=== PATIENT | female | born 1950 | race Caucasian/White ===

== ENCOUNTER → 2018-01-14 | Outpatient (CLI) | payer MEDICARE ==
[~2018-01-14] MED LIST: 'PARAFON FORTE500 M1 PO; ACYCLOVIR400 MG PO; AGGRENOX 25 MG-1 CER PO; AMBIEN12.5 MG PO; HYDROCODONE BIT1 T11 PO; KOMBIGLYZE XR 11 TER PO; LISINOPRIL20 MG PO; NAPROSYN500 MG PO; SIMVASTATIN40 MG PO; TENORETIC PO; [UNRECOGNIZED DRUG - OTHER]
== END | disposition home or self-care (01) ==
LOC: MAMMO 12-30 10:40
DX: Z12.31 Encounter for screening mammogram for malignant neoplasm of breast (principal)

== ENCOUNTER → 2018-01-28 | Outpatient (CLI) | payer MEDICARE | END | disposition home or self-care (01) | LOC: MAMMO 01-20 13:00 | DX: R92.8 Other abnormal and inconclusive findings on diagnostic imaging of breast (principal) ==

== ENCOUNTER → 2018-03-02 | Day surgery (SDC) | payer MEDICARE | END | disposition home or self-care (01) | LOC: SDC 04:08 | DX: C79.81 Secondary malignant neoplasm of breast (principal); N63.31 Unspecified lump in axillary tail of the right breast; I10 Essential (primary) hypertension; E11.9 Type 2 diabetes mellitus without complications; E78.2 Mixed hyperlipidemia; F33.41 Major depressive disorder, recurrent, in partial remission; Z86.73 Personal history of transient ischemic attack (TIA), and cerebral infarction without residual deficits; K21.9 Gastro-esophageal reflux disease without esophagitis; M19.041 Primary osteoarthritis, right hand; M19.042 Primary osteoarthritis, left hand; J45.909 Unspecified asthma, uncomplicated; Z79.899 Other long term (current) drug therapy; Z98.51 Tubal ligation status; Z90.710 Acquired absence of both cervix and uterus; R59.9 Enlarged lymph nodes, unspecified ==

== ENCOUNTER → 2018-03-22 | Outpatient (CLI) | payer MEDICARE ==
[2018-03-22 17:07] LABS: ALBUMIN 4.1 gm/dl (3.1-4.5); ALKALINE PHOSPHATASE 71 U/L (45-117); BUN 16 mg/dl (7-24); CHLORIDE 100 mmol/L (98-107); CREATININE 1.01 mg/dL (0.55-1.02); POTASSIUM 4.6 mmol/L (3.5-5.1); SGOT/AST 32 IU/L (3-35); SGPT/ALT 41 U/L (12-78); SODIUM 136 mmol/L (136-145); TOTAL PROTEIN 8.1 gm/dL (6.4-8.2)
== END | disposition home or self-care (01) ==
LOC: LAB 16:17
PROVIDERS: Family Medicine
DX: E11.9 Type 2 diabetes mellitus without complications (principal)

== ENCOUNTER 2018-05-02 18:39 | Emergency (ER) | payer MEDICARE ==
[~2018-05-02] VITALS: Wt 70.3 kg
[2018-05-02 19:09] LABS: BASO % 0.7 % (0.0-1.0); EOS # 0.3 10*3/uL (0.0-0.4); EOS % 5.6 % (1.0-4.0); HEMATOCRIT 39.9 % (37.0-47.0); HEMOGLOBIN 13.4 g/dl (12.0-16.0); MEAN CELL VOLUME 86.9 fl (81.0-99.0); MEAN CORPUSCULAR HGB 29.2 pg (27.0-31.0); MEAN CORPUSCULAR HGB CONC 33.6 g/dl (33.0-37.0); MEAN PLATELET VOLUME 10.9 fl (9.6-12.3); MONO # 0.5 10*3/uL (0.1-1.0); MONO % 7.4 % (3.0-9.0); NEUT # 4.2 10*3/uL (2.3-7.9); NEUT % 68.8 % (47.0-73.0); PLATELET COUNT AUTOMATED 158 10*3/uL (130-400); RED BLOOD COUNT 4.59 10*6/uL (4.10-5.10); RED CELL DISTRI WIDTH 12.5 % (0-14.5); WHITE BLOOD COUNT 6.1 10*3/uL (4.8-10.8)
[2018-05-02 19:25] LABS: ALBUMIN 3.7 gm/dl (3.1-4.5); CREATININE 1.19 mg/dL (0.55-1.02); POTASSIUM 3.9 mmol/L (3.5-5.1); TOTAL PROTEIN 7.4 gm/dL (6.4-8.2)
[2018-05-02] MEDS ORDERED: CLINDAMYCIN HC300 MG PO (20:50)
== END 2018-05-02 21:10 | disposition home or self-care (01) ==
LOC: ED 18:39
PROVIDERS: Physician Assistant
DX: R22.1 Localized swelling, mass and lump, neck (principal); Z90.49 Acquired absence of other specified parts of digestive tract; Z98.890 Other specified postprocedural states; Z79.82 Long term (current) use of aspirin; Z79.899 Other long term (current) drug therapy; Z88.0 Allergy status to penicillin; Z88.1 Allergy status to other antibiotic agents

== ENCOUNTER → 2019-06-14 | Outpatient (CLI) | payer MEDICARE ==
[~2019-06-14] MED LIST changes: +AGGRENOX 25/2001 EA PO; +ALPRAZOLAM0.25 M2 PO; +AMBIEN5 MG PO; +ANTI-DIARRHEAL2 MG PO; +ATENOLOL-CHLOR1 EAC1 PO; +B COMPLEX1 EACH PO; +CLINDAMYCIN HC300 MG PO; +DEXAMETHASONE4 MG PO; +EC NAPROSYN,NA500 MG PO; +GLUCOPHAGE1000 MG PO; +GOOD NEIGHBOR150 M1 PO; +GRALISE300 M1 PO; +LEXAPRO20 MG PO; +LOMOTIL 2.5-0.1 EACH PO; +MELADOX NATURAL3 MG PO; +ONDANSETRON8 MG PO; +PROCHLORPERAZIN10 MG PO; +TRADJENTA5 M1 PO; +TRULICITY0.75 MG/0. SC; +ZESTRIL20 MG PO; +ZYRTEC10 MG PO
== END | disposition home or self-care (01) ==
LOC: CT 06-09 13:00
DX: Z13.29 Encounter for screening for other suspected endocrine disorder (principal); H05.20 Unspecified exophthalmos; I10 Essential (primary) hypertension

== ENCOUNTER → 2019-06-22 | Outpatient (CLI) | payer MEDICARE | END | disposition home or self-care (01) | LOC: US 06-20 12:30 | DX: Z13.29 Encounter for screening for other suspected endocrine disorder (principal); I65.23 Occlusion and stenosis of bilateral carotid arteries; I10 Essential (primary) hypertension; R09.89 Other specified symptoms and signs involving the circulatory and respiratory systems; H05.20 Unspecified exophthalmos; E11.9 Type 2 diabetes mellitus without complications; F17.200 Nicotine dependence, unspecified, uncomplicated ==

== ENCOUNTER → 2020-01-09 | Outpatient (CLI) | payer MEDICARE | LOC: CARD 11:22 | DX: I05.0 Rheumatic mitral stenosis (principal); I70.0 Atherosclerosis of aorta; I35.1 Nonrheumatic aortic (valve) insufficiency ==

== ENCOUNTER → 2020-06-13 | Outpatient (CLI) | payer MEDICARE | END | disposition home or self-care (01) | LOC: COVID19 00:56 | DX: Z01.818 Encounter for other preprocedural examination (principal); Z11.59 Encounter for screening for other viral diseases ==

== ENCOUNTER → 2020-06-18 | Day surgery (SDC) | payer MEDICARE ==
[~2020-06-18] VITALS: Ht 157.4 cm; Wt 65.8 kg
[2020-06-18 08:40] VITALS: BP 133/74
[2020-06-18 11:11] VITALS: BP 108/58
[2020-06-18 11:25] VITALS: BP 124/61
[2020-06-18 11:41] VITALS: BP 129/66
== END | disposition home or self-care (01) ==
LOC: SDC 06-14 11:00
DX: R19.7 Diarrhea, unspecified (principal); D12.2 Benign neoplasm of ascending colon; I10 Essential (primary) hypertension; E11.9 Type 2 diabetes mellitus without complications; F41.9 Anxiety disorder, unspecified; K57.30 Diverticulosis of large intestine without perforation or abscess without bleeding; K21.9 Gastro-esophageal reflux disease without esophagitis; J45.909 Unspecified asthma, uncomplicated; F32.9 Major depressive disorder, single episode, unspecified; Z98.51 Tubal ligation status; Z98.890 Other specified postprocedural states; Z79.899 Other long term (current) drug therapy; Z86.73 Personal history of transient ischemic attack (TIA), and cerebral infarction without residual deficits; Z86.010 Personal history of colon polyps; Z83.6 Family history of other diseases of the respiratory system

== ENCOUNTER 2021-02-01 00:13 | Emergency (ER) | payer MEDICARE ==
[~2021-02-01] VITALS: Ht 157.4 cm; Wt 65.0 kg
[2021-02-01 01:02] LABS: BASO % 0.4 % (0.0-1.0); EOS # 0.1 10*3/uL (0.0-0.4); EOS % 0.7 % (1.0-4.0); HEMATOCRIT 34.1 % (37.0-47.0); LYMPH # 0.4 10*3/uL (1.3-4.4); LYMPH % 5.6 % (27.0-41.0); MEAN CELL VOLUME 89.3 fl (81.0-99.0); MEAN CORPUSCULAR HGB 29.8 pg (27.0-31.0); MEAN CORPUSCULAR HGB CONC 33.4 g/dl (33.0-37.0); MEAN PLATELET VOLUME 10.2 fl (9.6-12.3); MONO # 0.5 10*3/uL (0.1-1.0); MONO % 7.4 % (3.0-9.0); NEUT # 6.1 10*3/uL (2.3-7.9); NEUT % 85.5 % (47.0-73.0); PLATELET COUNT AUTOMATED 133 10*3/uL (130-400); RED BLOOD COUNT 3.82 10*6/uL (4.10-5.10); RED CELL DISTRI WIDTH 12.9 % (0-14.5); WHITE BLOOD COUNT 7.1 10*3/uL (4.8-10.8)
[2021-02-01 01:18] LABS: ALBUMIN 3.6 gm/dl (3.1-4.5); CREATININE 1.79 mg/dL (0.55-1.02); TOTAL PROTEIN 6.8 gm/dL (6.4-8.2)
[2021-02-01 01:44] LABS: POTASSIUM 3.1 mmol/L (3.5-5.1)
[2021-02-01 04:07] LABS: BILIRUBIN Negative (Negative); BLOOD Negative (Negative); CLARITY Clear (Clear); COLOR Yellow (Yellow); GLUCOSE Negative (Negative); KETONE Trace (Negative); LEUKO ESTERASE Negative (Negative); NITRITE Negative (Negative); UROBILINOGEN 0.2 E.U./dl (0.0-1.0)
[2021-02-01 04:16] LABS: YEAST TRACE
== END 2021-02-01 05:54 | disposition home or self-care (01) ==
LOC: ED 00:13
PROVIDERS: Emergency Medicine
DX: R51.9 Headache, unspecified (principal); T50.Z95A Adverse effect of other vaccines and biological substances, initial encounter; Z90.49 Acquired absence of other specified parts of digestive tract; Z88.0 Allergy status to penicillin; Z88.1 Allergy status to other antibiotic agents; Z79.899 Other long term (current) drug therapy; Y92.89 Other specified places as the place of occurrence of the external cause

== ENCOUNTER → 2021-04-17 | Outpatient (CLI) | payer MEDICARE ==
[~2021-04-17] MED LIST changes: +ASPIRIN81 M1 PO; +GLIPIZIDE5 M1 PO; +HEARTBURN RELIE20 MG PO; +LIPITOR80 MG PO; +MECLIZINE HYD12.5 MG PO; +MELATONIN10 M2 PO; +PLAVIX75 M1 PO; +VITAMIN D325 MCG PO
== END | disposition home or self-care (01) ==
LOC: CARD 00:26
PROVIDERS: ATTEND Internal Medicine Cardiovascular Disease
DX: I47.2 Ventricular tachycardia (principal); R94.31 Abnormal electrocardiogram [ECG] [EKG]

== ENCOUNTER 2021-06-27 21:35 | Emergency (ER) | payer MEDICARE ==
[~2021-06-27] VITALS: Ht 162.5 cm; Wt 63.5 kg
[2021-06-27] MEDS ORDERED: HYDROCODONE-AC1 EAC1 PO (23:23)
== END 2021-06-28 00:59 | disposition home or self-care (01) ==
LOC: ED 21:35
DX: S52.502A Unspecified fracture of the lower end of left radius, initial encounter for closed fracture (principal); M54.2 Cervicalgia; Z88.0 Allergy status to penicillin; Z88.1 Allergy status to other antibiotic agents; Z79.899 Other long term (current) drug therapy; Z79.82 Long term (current) use of aspirin; Z90.49 Acquired absence of other specified parts of digestive tract; Z98.890 Other specified postprocedural states; W01.0XXA Fall on same level from slipping, tripping and stumbling without subsequent striking against object, initial encounter; Y93.89 Activity, other specified; Y92.89 Other specified places as the place of occurrence of the external cause; Y99.8 Other external cause status

== ENCOUNTER → 2021-07-15 | Outpatient (CLI) | payer MEDICARE ==
[~2021-07-15] MED LIST changes: +HYDROCODONE-AC1 EAC1 PO
== END | disposition home or self-care (01) ==
LOC: ORTHO 00:37
PROVIDERS: ATTEND Orthopaedic Surgery
DX: S52.532D Colles' fracture of left radius, subsequent encounter for closed fracture with routine healing (principal); X58.XXXD Exposure to other specified factors, subsequent encounter

== ENCOUNTER → 2021-08-02 | Outpatient (CLI) | payer MEDICARE | END | disposition home or self-care (01) | LOC: ORTHO 00:29 | PROVIDERS: ATTEND Orthopaedic Surgery | DX: S52.532D Colles' fracture of left radius, subsequent encounter for closed fracture with routine healing (principal); M79.89 Other specified soft tissue disorders; X58.XXXD Exposure to other specified factors, subsequent encounter ==

== ENCOUNTER → 2021-10-02 | Outpatient (CLI) | payer MEDICARE | END | disposition home or self-care (01) | LOC: RAD 13:47 | PROVIDERS: ATTEND Orthopaedic Surgery | DX: S52.132D Displaced fracture of neck of left radius, subsequent encounter for closed fracture with routine healing (principal); X58.XXXD Exposure to other specified factors, subsequent encounter ==

== ENCOUNTER → 2022-01-24 | Outpatient (CLI) | payer MEDICARE | END | disposition home or self-care (01) | LOC: ORTHO 02:34 | PROVIDERS: ATTEND Orthopaedic Surgery | DX: M19.022 Primary osteoarthritis, left elbow (principal); M25.722 Osteophyte, left elbow ==

== ENCOUNTER → 2022-05-19 | Outpatient (CLI) | payer MEDICARE | END | disposition home or self-care (01) | LOC: RAD 08:30 | PROVIDERS: ATTEND Physician Assistant | DX: M43.8X6 Other specified deforming dorsopathies, lumbar region (principal); M85.88 Other specified disorders of bone density and structure, other site; M25.78 Osteophyte, vertebrae; M48.07 Spinal stenosis, lumbosacral region; I70.0 Atherosclerosis of aorta ==

== ENCOUNTER 2022-10-12 17:55 | Emergency (ER) | payer MEDICARE ==
[~2022-10-12] VITALS: Ht 152.4 cm; Wt 67.2 kg
[~2022-10-12 17:55] MED LIST changes: +CETIRIZINE HYDR10 MG PO
[2022-10-12 18:28] LABS: BASO % 0.5 % (0.0-1.0); EOS # 0.1 10*3/uL (0.0-0.4); EOS % 1.7 % (1.0-4.0); HEMATOCRIT 37.8 % (37.0-47.0); LYMPH # 0.7 10*3/uL (1.3-4.4); LYMPH % 9.2 % (27.0-41.0); MEAN CELL VOLUME 87.9 fl (81.0-99.0); MEAN CORPUSCULAR HGB 29.1 pg (27.0-31.0); MEAN CORPUSCULAR HGB CONC 33.1 g/dl (33.0-37.0); MEAN PLATELET VOLUME 10.7 fl (9.6-12.3); MONO # 0.7 10*3/uL (0.1-1.0); MONO % 9.1 % (3.0-9.0); NEUT # 5.9 10*3/uL (2.3-7.9); PLATELET COUNT AUTOMATED 164 10*3/uL (130-400); RED CELL DISTRI WIDTH 13.2 % (0-14.5); WHITE BLOOD COUNT 7.5 10*3/uL (4.8-10.8)
[2022-10-12 19:12] LABS: CREATININE 1.15 mg/dL (0.55-1.02); POTASSIUM 3.5 mmol/L (3.5-5.1); TOTAL PROTEIN 6.6 gm/dL (6.4-8.2)
== END 2022-10-12 21:57 ==
LOC: ED 17:55
PROVIDERS: Family Medicine
DX: G89.29 Other chronic pain (principal); M79.621 Pain in right upper arm; I12.9 Hypertensive chronic kidney disease with stage 1 through stage 4 chronic kidney disease, or unspecified chronic kidney disease; E11.22 Type 2 diabetes mellitus with diabetic chronic kidney disease; N18.31 Chronic kidney disease, stage 3a; K21.9 Gastro-esophageal reflux disease without esophagitis; J45.909 Unspecified asthma, uncomplicated; Z88.0 Allergy status to penicillin; Z88.1 Allergy status to other antibiotic agents; Z79.899 Other long term (current) drug therapy; Z79.82 Long term (current) use of aspirin; Z90.49 Acquired absence of other specified parts of digestive tract; Z90.710 Acquired absence of both cervix and uterus; F17.200 Nicotine dependence, unspecified, uncomplicated

== ENCOUNTER 2023-01-02 16:04 | Emergency (ER) | payer MEDICARE ==
[~2023-01-02] VITALS: Ht 157.4 cm; Wt 59.0 kg
== END 2023-01-02 17:20 | disposition home or self-care (01) ==
LOC: ED 16:04
DX: S93.401A Sprain of unspecified ligament of right ankle, initial encounter (principal); Z88.0 Allergy status to penicillin; Z88.1 Allergy status to other antibiotic agents; Z90.49 Acquired absence of other specified parts of digestive tract; Z90.710 Acquired absence of both cervix and uterus; Z98.890 Other specified postprocedural states; F17.200 Nicotine dependence, unspecified, uncomplicated; X50.1XXA Overexertion from prolonged static or awkward postures, initial encounter; Y93.89 Activity, other specified; Y92.89 Other specified places as the place of occurrence of the external cause; Y99.8 Other external cause status

== ENCOUNTER 2023-03-05 15:38 | Emergency (ER) | payer MEDICARE ==
[~2023-03-05] VITALS: Ht 157.4 cm; Wt 59.0 kg
[2023-03-05 16:19] LABS: BILIRUBIN Negative (Negative); BLOOD Trace-Intact (Negative); CLARITY Cloudy (Clear); COLOR Yellow (Yellow); GLUCOSE Negative (Negative); KETONE Negative (Negative); LEUKO ESTERASE 2+ (Negative); NITRITE Negative (Negative)
[2023-03-05 16:38] LABS: BACTERIA 2+; EPITHELIAL CELLS 0-2; RBC 0-2 rbc/hpf (0-2); WBC 31-40 wbc/hpf (0-5)
[2023-03-05 16:56] LABS: BASO % 0.9 % (0.0-1.0); EOS # 0.3 10*3/uL (0.0-0.4); EOS % 6.1 % (1.0-4.0); HEMATOCRIT 35.6 % (37.0-47.0); LYMPH # 0.8 10*3/uL (1.3-4.4); LYMPH % 16.5 % (27.0-41.0); MEAN CELL VOLUME 90.4 fl (81.0-99.0); MEAN CORPUSCULAR HGB 29.4 pg (27.0-31.0); MEAN CORPUSCULAR HGB CONC 32.6 g/dl (33.0-37.0); MONO # 0.6 10*3/uL (0.1-1.0); MONO % 12.4 % (3.0-9.0); NEUT # 2.9 10*3/uL (2.3-7.9); NEUT % 63.7 % (47.0-73.0); PLATELET COUNT AUTOMATED 166 10*3/uL (130-400); RED BLOOD COUNT 3.94 10*6/uL (4.10-5.10); WHITE BLOOD COUNT 4.6 10*3/uL (4.8-10.8)
[2023-03-05 17:10] LABS: ALKALINE PHOSPHATASE 54 U/L (46-116); BUN 21 mg/dl (9-23); CHLORIDE 97 mmol/L (98-107); POTASSIUM 2.8 mmol/L (3.4-5.1); SGPT/ALT 11 U/L (10-49); TOTAL PROTEIN 6.4 gm/dL (6.0-8.0)
[2023-03-05] MEDS ORDERED: MACROBID100 M1 PO ×2 (19:03)
[2023-03-09] MEDS ORDERED: HYDROCODONE-AC1 EAC1 PO (21:32)
[2023-03-09] MEDS ORDERED: METFORMIN HYD1000 MG PO (21:33)
[2023-03-09] MEDS ORDERED: ACYCLOVIR400 MG PO (21:34)
[2023-03-09] MEDS ORDERED: AMBIEN5 MG PO (21:34)
[2023-03-09] MEDS ORDERED: BACLOFEN5 MG PO (21:35)
[2023-03-09] MEDS ORDERED: NEURONTIN100 MG PO (21:35)
[2023-03-09] MEDS ORDERED: ATENOLOL-CHLOR1 EAC1 PO (21:36)
[2023-03-09] MEDS ORDERED: ACTOS30 M1 PO (21:36)
== END 2023-03-05 19:15 | disposition home or self-care (01) ==
LOC: ED 15:38
PROVIDERS: Emergency Medicine; Physician Assistant
DX: N39.0 Urinary tract infection, site not specified (principal); E87.6 Hypokalemia; Z88.0 Allergy status to penicillin; Z88.1 Allergy status to other antibiotic agents; Z79.899 Other long term (current) drug therapy; Z79.82 Long term (current) use of aspirin; Z90.710 Acquired absence of both cervix and uterus; Z90.49 Acquired absence of other specified parts of digestive tract; F17.200 Nicotine dependence, unspecified, uncomplicated

== ENCOUNTER → 2023-04-01 | Outpatient (CLI) | payer MEDICARE ==
[~2023-04-01] MED LIST changes: +ACTOS30 M1 PO; +AVPAK EXTENDED100 M1 PO; +BACLOFEN5 MG PO; +LEVETIRACETAM500 MG PO; +MACROBID100 M1 PO; +METFORMIN HYD1000 MG PO; +NEURONTIN100 MG PO
== END | disposition home or self-care (01) ==
LOC: LAB 12:59
PROVIDERS: ATTEND Physician Assistant
DX: I63.9 Cerebral infarction, unspecified (principal); R19.7 Diarrhea, unspecified

== ENCOUNTER 2023-05-07 10:42 | Emergency (ER) | payer MEDICARE ==
[~2023-05-07] VITALS: Ht 165.1 cm; Wt 64.9 kg
[2023-05-07 11:29] LABS: BASO # 0.1 10*3/uL (0.0-0.1); BASO % 1.1 % (0.0-1.0); EOS # 0.5 10*3/uL (0.0-0.4); EOS % 4.3 % (1.0-4.0); HEMATOCRIT 44.6 % (37.0-47.0); LYMPH # 3.1 10*3/uL (1.3-4.4); LYMPH % 27.3 % (27.0-41.0); MEAN CELL VOLUME 90.8 fl (81.0-99.0); MEAN CORPUSCULAR HGB 28.9 pg (27.0-31.0); MEAN CORPUSCULAR HGB CONC 31.8 g/dl (33.0-37.0); MEAN PLATELET VOLUME 10.3 fl (9.6-12.3); MONO % 8.9 % (3.0-9.0); NEUT # 6.5 10*3/uL (2.3-7.9); NEUT % 57.7 % (47.0-73.0); PLATELET COUNT AUTOMATED 357 10*3/uL (130-400); RED BLOOD COUNT 4.91 10*6/uL (4.10-5.10); RED CELL DISTRI WIDTH 13.9 % (0-14.5); WHITE BLOOD COUNT 11.2 10*3/uL (4.8-10.8)
[2023-05-07 11:42] LABS: ACT PARTIAL THROMBO TIME 27.5 SECONDS (20.0-32.1); INTERNATIONAL NORM RATIO 1.1 (2.0-3.5)
[2023-05-07 11:56] LABS: ALKALINE PHOSPHATASE 107 U/L (46-116); BUN 21 mg/dl (9-23); CHLORIDE 97 mmol/L (98-107); LIPASE 26 U/L (12-53); POTASSIUM 2.8 mmol/L (3.4-5.1); SGPT/ALT 26 U/L (10-49); TOTAL PROTEIN 7.4 gm/dL (6.0-8.0)
[2023-05-07 21:54] LABS: BUN 21 mg/dl (9-23); CHLORIDE 101 mmol/L (98-107)
[2023-05-07 21:55] LABS: POTASSIUM 4.9 mmol/L (3.4-5.1)
[2023-05-08 06:21] LABS: BASO % 0.1 % (0.0-1.0); HEMATOCRIT 43.3 % (37.0-47.0); LYMPH # 0.9 10*3/uL (1.3-4.4); MEAN CORPUSCULAR HGB 28.7 pg (27.0-31.0); MEAN CORPUSCULAR HGB CONC 32.6 g/dl (33.0-37.0); MEAN PLATELET VOLUME 10.4 fl (9.6-12.3); MONO # 1.1 10*3/uL (0.1-1.0); MONO % 7.2 % (3.0-9.0); NEUT # 12.6 10*3/uL (2.3-7.9); PLATELET COUNT AUTOMATED 345 10*3/uL (130-400); RED BLOOD COUNT 4.92 10*6/uL (4.10-5.10); RED CELL DISTRI WIDTH 13.9 % (0-14.5); WHITE BLOOD COUNT 14.6 10*3/uL (4.8-10.8)
[2023-05-08 06:23] LABS: ALKALINE PHOSPHATASE 99 U/L (46-116); BUN 21 mg/dl (9-23); CHLORIDE 100 mmol/L (98-107); POTASSIUM 4.1 mmol/L (3.4-5.1); SGPT/ALT 20 U/L (10-49); TOTAL PROTEIN 7.8 gm/dL (6.0-8.0)
== END 2023-05-08 18:40 | disposition short-term general hospital (02) ==
LOC: ED 10:42
PROVIDERS: Emergency Medicine
DX: I21.4 Non-ST elevation (NSTEMI) myocardial infarction (principal); J44.1 Chronic obstructive pulmonary disease with (acute) exacerbation; J96.01 Acute respiratory failure with hypoxia; F17.200 Nicotine dependence, unspecified, uncomplicated; Z88.0 Allergy status to penicillin; Z88.1 Allergy status to other antibiotic agents; Z79.899 Other long term (current) drug therapy; Z79.82 Long term (current) use of aspirin; Z90.49 Acquired absence of other specified parts of digestive tract; Z90.711 Acquired absence of uterus with remaining cervical stump; Z98.890 Other specified postprocedural states

== ENCOUNTER 2023-06-10 17:20 | Inpatient (IN) | payer MEDICARE ==
[~2023-06-10] VITALS: Ht 167.6 cm; Wt 59.1 kg
[2023-06-10 17:24] VITALS: BP 125/69
[2023-06-10 17:48] LABS: BILIRUBIN Negative (Negative); BLOOD 2+ (Negative); CLARITY Turbid (Clear); COLOR Dark Yellow (Yellow); GLUCOSE Trace (Negative); KETONE Trace (Negative); LEUKO ESTERASE 3+ (Negative); NITRITE Negative (Negative)
[2023-06-10 18:02] LABS: WBC TNTC wbc/hpf (0-5)
[2023-06-10 18:06] LABS: BASO % 0.6 % (0.0-1.0); EOS # 0.1 10*3/uL (0.0-0.4); EOS % 0.8 % (1.0-4.0); LYMPH # 0.2 10*3/uL (1.3-4.4); LYMPH % 3.4 % (27.0-41.0); MEAN CORPUSCULAR HGB 30.3 pg (27.0-31.0); MEAN CORPUSCULAR HGB CONC 34.4 g/dl (33.0-37.0); MEAN PLATELET VOLUME 12.1 fl (9.6-12.3); MONO # 0.6 10*3/uL (0.1-1.0); MONO % 9.1 % (3.0-9.0); NEUT # 6.1 10*3/uL (2.3-7.9); NEUT % 85.7 % (47.0-73.0); PLATELET COUNT AUTOMATED 174 10*3/uL (130-400); RED BLOOD COUNT 4.09 10*6/uL (4.10-5.10); RED CELL DISTRI WIDTH 14.7 % (0-14.5); WHITE BLOOD COUNT 7.1 10*3/uL (4.8-10.8)
[2023-06-10 18:52] LABS: ACT PARTIAL THROMBO TIME 32.6 SECONDS (20.0-32.1); INTERNATIONAL NORM RATIO 1.1 (2.0-3.5)
[2023-06-10 19:02] LABS: POTASSIUM 4.5 mmol/L (3.4-5.1); TOTAL PROTEIN 6.8 gm/dL (6.0-8.0)
[2023-06-10 19:12] VITALS: BP 112/59
[2023-06-10] MEDS ORDERED: CARVEDILOL12.5 MG PO (19:18)
[2023-06-10] MEDS ORDERED: FUROSEMIDE20 M1 PO (19:18)
[2023-06-10] MEDS ORDERED: JARDIANCE10 MG PO (19:20)
[2023-06-10] MEDS ORDERED: ALDACTONE25 MG PO (19:21)
[2023-06-10] MEDS ORDERED: CETIRIZINE10 MG PO (19:24)
[2023-06-10] MEDS ORDERED: LISINOPRIL20 MG PO (19:25)
[2023-06-10] MEDS ORDERED: MELATONIN10 M2 PO (19:27)
[2023-06-10 21:13] VITALS: BP 150/79
[2023-06-10 22:00] VITALS: BP 136/98
[2023-06-10 23:39] VITALS: BP 144/97
[2023-06-11] VITALS (8 sets, daily range): BP systolic 90–125; BP diastolic 49–74
[2023-06-11 05:09] LABS: ACT PARTIAL THROMBO TIME 32.2 SECONDS (20.0-32.1); INTERNATIONAL NORM RATIO 1.1 (2.0-3.5)
[2023-06-11 06:22] LABS: FREE T4 1.28 ng/dl (0.89-1.76); POTASSIUM 5.2 mmol/L (3.4-5.1); TOTAL PROTEIN 6.8 gm/dL (6.0-8.0)
[2023-06-11 06:28] LABS: BASO % 0.6 % (0.0-1.0); EOS % 0.3 % (1.0-4.0); HEMATOCRIT 34.5 % (37.0-47.0); LYMPH # 0.4 10*3/uL (1.3-4.4); LYMPH % 6.2 % (27.0-41.0); MEAN CORPUSCULAR HGB 29.6 pg (27.0-31.0); MEAN CORPUSCULAR HGB CONC 31.9 g/dl (33.0-37.0); MEAN PLATELET VOLUME 10.9 fl (9.6-12.3); MONO # 0.7 10*3/uL (0.1-1.0); MONO % 10.7 % (3.0-9.0); NEUT # 5.2 10*3/uL (2.3-7.9); NEUT % 81.6 % (47.0-73.0); PLATELET COUNT AUTOMATED 125 10*3/uL (130-400); RED BLOOD COUNT 3.72 10*6/uL (4.10-5.10); RED CELL DISTRI WIDTH 14.6 % (0-14.5); WHITE BLOOD COUNT 6.3 10*3/uL (4.8-10.8)
[2023-06-11 07:08] LABS: MEAN CELL VOLUME 92.7 fl (81.0-99.0)
[2023-06-11 08:26] LABS: VITAMIN D, 25-HYDROXY 53.3 ng/mL (30-100)
[2023-06-11 21:05] LABS: BUN 19 mg/dl (9-23); CHLORIDE 101 mmol/L (98-107)
[2023-06-11 21:06] LABS: POTASSIUM 3.6 mmol/L (3.4-5.1)
[2023-06-12] VITALS (11 sets, daily range): BP systolic 90–155; BP diastolic 38–97
[2023-06-12 05:53] LABS: BASO % 0.5 % (0.0-1.0); EOS # 0.1 10*3/uL (0.0-0.4); HEMATOCRIT 32.1 % (37.0-47.0); LYMPH # 0.4 10*3/uL (1.3-4.4); LYMPH % 10.7 % (27.0-41.0); MEAN CELL VOLUME 91.2 fl (81.0-99.0); MEAN CORPUSCULAR HGB 28.7 pg (27.0-31.0); MEAN CORPUSCULAR HGB CONC 31.5 g/dl (33.0-37.0); MEAN PLATELET VOLUME 10.8 fl (9.6-12.3); MONO # 0.4 10*3/uL (0.1-1.0); MONO % 11.3 % (3.0-9.0); NEUT # 2.9 10*3/uL (2.3-7.9); NEUT % 74.2 % (47.0-73.0); PLATELET COUNT AUTOMATED 113 10*3/uL (130-400); RED BLOOD COUNT 3.52 10*6/uL (4.10-5.10); RED CELL DISTRI WIDTH 14.6 % (0-14.5); WHITE BLOOD COUNT 3.9 10*3/uL (4.8-10.8)
[2023-06-12 06:09] LABS: ALKALINE PHOSPHATASE 353 U/L (46-116); BUN 20 mg/dl (9-23); CHLORIDE 103 mmol/L (98-107); POTASSIUM 3.8 mmol/L (3.4-5.1); SGPT/ALT 1015 U/L (10-49); TOTAL PROTEIN 6.5 gm/dL (6.0-8.0)
[2023-06-13 04:00] VITALS: BP 97/51
[2023-06-13 04:22] LABS: BASO % 0.5 % (0.0-1.0); EOS # 0.1 10*3/uL (0.0-0.4); EOS % 3.5 % (1.0-4.0); HEMATOCRIT 27.4 % (37.0-47.0); LYMPH # 0.4 10*3/uL (1.3-4.4); LYMPH % 9.6 % (27.0-41.0); MEAN CELL VOLUME 90.4 fl (81.0-99.0); MEAN CORPUSCULAR HGB CONC 32.1 g/dl (33.0-37.0); MEAN PLATELET VOLUME 10.3 fl (9.6-12.3); MONO # 0.5 10*3/uL (0.1-1.0); MONO % 11.9 % (3.0-9.0); NEUT # 2.9 10*3/uL (2.3-7.9); PLATELET COUNT AUTOMATED 119 10*3/uL (130-400); RED BLOOD COUNT 3.03 10*6/uL (4.10-5.10); RED CELL DISTRI WIDTH 14.6 % (0-14.5)
[2023-06-13 04:39] LABS: POTASSIUM 3.6 mmol/L (3.4-5.1); TOTAL PROTEIN 5.9 gm/dL (6.0-8.0)
[2023-06-13 08:00] VITALS: BP 122/62
[2023-06-13 12:00] VITALS: BP 121/63
[2023-06-13 16:00] VITALS: BP 98/61
[2023-06-13 20:11] VITALS: BP 93/63
[2023-06-14 00:07] VITALS: BP 109/53
[2023-06-14 05:18] LABS: POTASSIUM 3.1 mmol/L (3.4-5.1); TOTAL PROTEIN 6.3 gm/dL (6.0-8.0)
[2023-06-14 06:20] LABS: BASO % 0.5 % (0.0-1.0); EOS # 0.2 10*3/uL (0.0-0.4); EOS % 3.9 % (1.0-4.0); HEMATOCRIT 26.8 % (37.0-47.0); LYMPH # 0.4 10*3/uL (1.3-4.4); LYMPH % 11.5 % (27.0-41.0); MEAN CELL VOLUME 89.9 fl (81.0-99.0); MEAN CORPUSCULAR HGB 28.9 pg (27.0-31.0); MEAN CORPUSCULAR HGB CONC 32.1 g/dl (33.0-37.0); MONO # 0.5 10*3/uL (0.1-1.0); MONO % 12.3 % (3.0-9.0); NEUT # 2.7 10*3/uL (2.3-7.9); RED BLOOD COUNT 2.98 10*6/uL (4.10-5.10); RED CELL DISTRI WIDTH 14.6 % (0-14.5); WHITE BLOOD COUNT 3.8 10*3/uL (4.8-10.8)
[2023-06-14 07:32] LABS: PLATELET COUNT AUTOMATED 140 10*3/uL (130-400)
[2023-06-14 08:00] VITALS: BP 111/57
[2023-06-14 12:00] VITALS: BP 100/40
[2023-06-14 16:00] VITALS: BP 96/41
[2023-06-15 00:09] VITALS: BP 101/40
[2023-06-15 04:08] VITALS: BP 105/54
[2023-06-15 05:28] LABS: POTASSIUM 3.6 mmol/L (3.4-5.1); TOTAL PROTEIN 5.9 gm/dL (6.0-8.0)
[2023-06-15 06:46] LABS: BASO % 0.3 % (0.0-1.0); EOS # 0.1 10*3/uL (0.0-0.4); EOS % 3.2 % (1.0-4.0); HEMATOCRIT 25.9 % (37.0-47.0); LYMPH # 0.3 10*3/uL (1.3-4.4); LYMPH % 8.3 % (27.0-41.0); MEAN CELL VOLUME 89.6 fl (81.0-99.0); MEAN CORPUSCULAR HGB 28.4 pg (27.0-31.0); MEAN CORPUSCULAR HGB CONC 31.7 g/dl (33.0-37.0); MEAN PLATELET VOLUME 10.5 fl (9.6-12.3); MONO # 0.4 10*3/uL (0.1-1.0); NEUT # 2.6 10*3/uL (2.3-7.9); NEUT % 75.3 % (47.0-73.0); PLATELET COUNT AUTOMATED 131 10*3/uL (130-400); RED BLOOD COUNT 2.89 10*6/uL (4.10-5.10); RED CELL DISTRI WIDTH 14.6 % (0-14.5); WHITE BLOOD COUNT 3.5 10*3/uL (4.8-10.8)
[2023-06-15 08:00] VITALS: BP 100/56
[2023-06-15 12:00] VITALS: BP 124/54
[2023-06-15 16:00] VITALS: BP 113/53
[2023-06-15 20:00] VITALS: BP 110/58
[2023-06-16] VITALS: BP 116/48
[2023-06-16 01:06] LABS: HBSAG Negative (Negative); HEP B CORE AB, IGM Negative (Negative); HEPATITIS C ANTIBODY Non Reactive (Non Reactive)
[2023-06-16 04:00] VITALS: BP 105/55
[2023-06-16 06:32] LABS: BASO % 0.5 % (0.0-1.0); EOS # 0.1 10*3/uL (0.0-0.4); EOS % 3.5 % (1.0-4.0); HEMATOCRIT 25.5 % (37.0-47.0); LYMPH # 0.4 10*3/uL (1.3-4.4); LYMPH % 10.8 % (27.0-41.0); MEAN CELL VOLUME 89.5 fl (81.0-99.0); MEAN CORPUSCULAR HGB 28.8 pg (27.0-31.0); MEAN CORPUSCULAR HGB CONC 32.2 g/dl (33.0-37.0); MEAN PLATELET VOLUME 10.8 fl (9.6-12.3); MONO # 0.6 10*3/uL (0.1-1.0); MONO % 15.5 % (3.0-9.0); NEUT # 2.7 10*3/uL (2.3-7.9); NEUT % 68.2 % (47.0-73.0); PLATELET COUNT AUTOMATED 148 10*3/uL (130-400); RED BLOOD COUNT 2.85 10*6/uL (4.10-5.10); RED CELL DISTRI WIDTH 14.5 % (0-14.5)
[2023-06-16 06:34] LABS: POTASSIUM 3.4 mmol/L (3.4-5.1); TOTAL PROTEIN 5.6 gm/dL (6.0-8.0)
[2023-06-16 08:00] VITALS: BP 109/54
[2023-06-16 12:00] VITALS: BP 104/47
[2023-06-16 16:00] VITALS: BP 105/52
[2023-06-16 20:27] VITALS: BP 98/44
[2023-06-16] MEDS ORDERED: ERTAPENEM1 GM IV (21:56)
[2023-06-17 00:12] VITALS: BP 99/45
[2023-06-17 04:22] VITALS: BP 90/51
[2023-06-17 06:05] LABS: ALKALINE PHOSPHATASE 368 U/L (46-116); BUN 14 mg/dl (9-23); CHLORIDE 101 mmol/L (98-107); POTASSIUM 3.5 mmol/L (3.4-5.1); SGPT/ALT 154 U/L (10-49); TOTAL PROTEIN 6.5 gm/dL (6.0-8.0)
[2023-06-17 06:30] LABS: MEAN CELL VOLUME 89.1 fl (81.0-99.0); MEAN CORPUSCULAR HGB CONC 32.6 g/dl (33.0-37.0); MEAN PLATELET VOLUME 10.8 fl (9.6-12.3); PLATELET COUNT AUTOMATED 187 10*3/uL (130-400); RED BLOOD COUNT 3.03 10*6/uL (4.10-5.10); RED CELL DISTRI WIDTH 14.6 % (0-14.5); WHITE BLOOD COUNT 4.4 10*3/uL (4.8-10.8)
[2023-06-17 06:33] LABS: MANUAL DIFF REFLEX YES
[2023-06-17 07:07] LABS: BURR CELLS FEW; OVALOCYTES FEW; PLATELET SUFFICIENCY NORMAL (NORMAL); POLYCHROMASIA SLIGHT; ROULEAUX SLIGHT; TOTAL CELLS COUNTED 100 #CELLS
[2023-06-17 08:00] VITALS: BP 134/57
[2023-06-17 12:00] VITALS: BP 115/61
[2023-06-17] MEDS ORDERED: HYDROCODONE-AC1 EAC1 PO (14:48)
[2023-06-17] MEDS ORDERED: ELIQUIS5 M1 PO (14:48)
[2023-06-17] MEDS ORDERED: NEURONTIN100 MG PO (14:48)
[2023-06-17 16:00] VITALS: BP 155/73
== END 2023-06-17 17:45 | DRG 871 ==
LOC: ED 17:20 → EDHOLD 19:09 → ICCU 19:09 → EDHOLD 06-11 02:20 → ICCU 06-11 05:32
PROVIDERS: Emergency Medicine; Family Medicine; Internal Medicine; Internal Medicine Infectious Disease; Student in an Organized Health Care Education/Training Program; ADMIT Family Medicine; ATTEND Family Medicine
PROC: B24BZZ4 Ultrasonography of Heart with Aorta, Transesophageal (ICD-10-PCS; principal; 2023-06-12)
PROC: 05HC33Z Insertion of Infusion Device into Left Basilic Vein, Percutaneous Approach (ICD-10-PCS; 2023-06-17)
PROC: B54NZZA Ultrasonography of Left Upper Extremity Veins, Guidance (ICD-10-PCS; 2023-06-17)
DX: A41.01 Sepsis due to Methicillin susceptible Staphylococcus aureus (principal); G93.41 Metabolic encephalopathy; N17.0 Acute kidney failure with tubular necrosis; E44.0 Moderate protein-calorie malnutrition; E87.1 Hypo-osmolality and hyponatremia; I82.621 Acute embolism and thrombosis of deep veins of right upper extremity; N30.01 Acute cystitis with hematuria; I82.611 Acute embolism and thrombosis of superficial veins of right upper extremity; R65.20 Severe sepsis without septic shock; I10 Essential (primary) hypertension; E83.42 Hypomagnesemia; R79.82 Elevated C-reactive protein (CRP); E11.65 Type 2 diabetes mellitus with hyperglycemia; I89.0 Lymphedema, not elsewhere classified; D64.9 Anemia, unspecified; R74.01 Elevation of levels of liver transaminase levels; E87.5 Hyperkalemia; B96.1 Klebsiella pneumoniae [K. pneumoniae] as the cause of diseases classified elsewhere; D69.6 Thrombocytopenia, unspecified; M25.521 Pain in right elbow; E83.39 Other disorders of phosphorus metabolism; Z88.1 Allergy status to other antibiotic agents; Z88.0 Allergy status to penicillin; Z90.49 Acquired absence of other specified parts of digestive tract; Z90.710 Acquired absence of both cervix and uterus; Z90.722 Acquired absence of ovaries, bilateral; Z82.49 Family history of ischemic heart disease and other diseases of the circulatory system; Z80.3 Family history of malignant neoplasm of breast; Z86.73 Personal history of transient ischemic attack (TIA), and cerebral infarction without residual deficits; Z68.21 Body mass index [BMI] 21.0-21.9, adult

== ENCOUNTER 2024-02-19 06:42 | Emergency (ER) | payer MEDICARE ==
[~2024-02-19] VITALS: Ht 157.4 cm; Wt 55.3 kg
[~2024-02-19 06:42] MED LIST changes: +ALDACTONE25 MG PO; +CARVEDILOL12.5 MG PO; +CETIRIZINE10 MG PO; +ELIQUIS5 M1 PO; +ERTAPENEM1 GM IV; +FUROSEMIDE20 M1 PO; +JARDIANCE10 MG PO; +LASIX40 MG PO; +Lovenox60 MG/0.6 PO; +ZITHROMAX TRI-500 M1 PO
[2024-02-19] MEDS ORDERED: ADENOSINE 12 MG IV ONE (06:50)
[2024-02-19] MEDS ORDERED: Metoprolol Tartrate 5 MG/5 ML VIAL IV ONE (06:50)
[2024-02-19] MEDS ORDERED: ADENOSINE 6 MG/2 ML VIAL IV ONE ×4 (07:01→07:10)
[2024-02-19] MEDS ORDERED: Amiodarone Hydrochloride 150 MG/3 ML VIAL IV ONE (07:06)
[2024-02-19] MEDS ORDERED: SODIUM CHLORIDE 0.9% 2,000 ML IV ONE (07:08)
[2024-02-19 07:12] LABS: BASO # 0.1 10*3/uL (0.0-0.1); BASO % 0.9 % (0.0-1.0); EOS # 0.2 10*3/uL (0.0-0.4); HEMATOCRIT 37.1 % (37.0-47.0); LYMPH # 0.5 10*3/uL (1.3-4.4); LYMPH % 6.7 % (27.0-41.0); MEAN CELL VOLUME 92.1 fl (81.0-99.0); MEAN CORPUSCULAR HGB CONC 31.5 g/dl (33.0-37.0); MONO # 0.8 10*3/uL (0.1-1.0); MONO % 10.1 % (3.0-9.0); PLATELET COUNT AUTOMATED 143 10*3/uL (130-400); RED BLOOD COUNT 4.03 10*6/uL (4.10-5.10); WHITE BLOOD COUNT 7.6 10*3/uL (4.8-10.8)
[2024-02-19 07:22] LABS: ACT PARTIAL THROMBO TIME 46.4 SECONDS (20.0-32.1)
[2024-02-19 07:34] LABS: ALKALINE PHOSPHATASE 89 U/L (46-116); BUN 17 mg/dl (9-23); CHLORIDE 102 mmol/L (98-107); LIPASE 22 U/L (12-53); POTASSIUM 3.4 mmol/L (3.4-5.1); SGPT/ALT 19 U/L (5-49); TOTAL PROTEIN 6.7 gm/dL (6.0-8.0)
[2024-02-19] MEDS ORDERED: HEPARIN SODIUM 250 ML IV SCH (08:00)
[2024-02-19] MEDS ORDERED: ASPIRIN 325 MG TAB PO ONE (08:05)
[2024-02-19] MEDS ORDERED: ACETAMINOPHEN 325 MG TAB PO ONE (08:55)
[2024-02-19] MEDS ORDERED: FUROSEMIDE 40 MG/4 ML VIAL IV ONE (09:05)
[2024-02-19] MEDS ORDERED: MORPHINE Sulfate 2 MG/ML SYR IV ONE (13:10)
[2024-02-19] MEDS ORDERED: Ondansetron Hydrochloride 4 MG/2 ML VIAL IV ONE (13:10)
== END 2024-02-19 16:37 | disposition short-term general hospital (02) ==
LOC: ED 06:42
PROVIDERS: Internal Medicine
DX: I47.10 Supraventricular tachycardia, unspecified (principal); I50.9 Heart failure, unspecified; I21.4 Non-ST elevation (NSTEMI) myocardial infarction; E11.9 Type 2 diabetes mellitus without complications; I10 Essential (primary) hypertension; E78.5 Hyperlipidemia, unspecified; Z88.1 Allergy status to other antibiotic agents; Z79.899 Other long term (current) drug therapy; Z90.49 Acquired absence of other specified parts of digestive tract; Z90.711 Acquired absence of uterus with remaining cervical stump; Z98.890 Other specified postprocedural states; Z87.891 Personal history of nicotine dependence

== ENCOUNTER 2024-03-04 11:18 | Inpatient (IN) | payer MEDICARE ==
[~2024-03-04] VITALS: Ht 154.9 cm; Wt 51.8 kg
[2024-03-04] MEDS ORDERED: SODIUM CHLORIDE 0.9% 1,000 ML IV ONE ×2 (11:25→21:55)
[2024-03-04] MEDS ORDERED: IOHEXOL 350 MG/ML 100 ML VIAL IV ONE ×2 (11:35→11:46)
[2024-03-04] MEDS ORDERED: SODIUM CHLORIDE 0.9% 100 ML BAG IV ONE (11:35)
[2024-03-04] MEDS ORDERED: SODIUM CHLORIDE 0.9% 100 ML IV ONE (11:46)
[2024-03-04 12:17] VITALS: BP 158/67
[2024-03-04 12:26] LABS: BASO # 0.1 10*3/uL (0.0-0.1); BASO % 1.5 % (0.0-1.0); EOS # 0.3 10*3/uL (0.0-0.4); EOS % 9.8 % (1.0-4.0); HEMATOCRIT 34.9 % (37.0-47.0); LYMPH # 0.4 10*3/uL (1.3-4.4); LYMPH % 12.6 % (27.0-41.0); MEAN CELL VOLUME 92.3 fl (81.0-99.0); MEAN CORPUSCULAR HGB 28.8 pg (27.0-31.0); MEAN CORPUSCULAR HGB CONC 31.2 g/dl (33.0-37.0); MEAN PLATELET VOLUME 10.5 fl (9.6-12.3); MONO # 0.4 10*3/uL (0.1-1.0); MONO % 11.7 % (3.0-9.0); NEUT # 2.1 10*3/uL (2.3-7.9); NEUT % 64.1 % (47.0-73.0); PLATELET COUNT AUTOMATED 111 10*3/uL (130-400); RED BLOOD COUNT 3.78 10*6/uL (4.10-5.10); RED CELL DISTRI WIDTH 13.5 % (0-14.5); WHITE BLOOD COUNT 3.3 10*3/uL (4.8-10.8)
[2024-03-04 12:48] LABS: ALKALINE PHOSPHATASE 88 U/L (46-116); BUN 26 mg/dl (9-23); CHLORIDE 102 mmol/L (98-107); POTASSIUM 3.9 mmol/L (3.4-5.1); SGPT/ALT 15 U/L (5-49); TOTAL PROTEIN 6.6 gm/dL (6.0-8.0)
[2024-03-04] MEDS ORDERED: Acetaminophen/Hydrocodone 5 MG/325 MG TABLET PO PRN (13:00)
[2024-03-04] MEDS ORDERED: Ondansetron Hydrochloride 4 MG/2 ML VIAL IV PRN (13:00)
[2024-03-04] MEDS ORDERED: BISACODYL 10 MG SUPP R PRN (13:00)
[2024-03-04] MEDS ORDERED: ACETAMINOPHEN 650 MG SUPP R PRN (13:00)
[2024-03-04] MEDS ORDERED: BISACODYL 5 MG TAB PO PRN (13:00)
[2024-03-04] MEDS ORDERED: ACETAMINOPHEN 325 MG TAB PO PRN (13:00)
[2024-03-04] MEDS ORDERED: Magnesium Hydroxide 30 ML UDC PO PRN (13:00)
[2024-03-04] MEDS ORDERED: TEMAZEPAM 15 MG CAP PO PRN (13:00)
[2024-03-04] MEDS ORDERED: MORPHINE Sulfate 2 MG/ML SYR IV PRN (13:00)
[2024-03-04] MEDS ORDERED: ELIQUIS2.5 M1 PO (13:30)
[2024-03-04 16:00] VITALS: BP 158/67
[2024-03-04] MEDS ORDERED: DEXTROSE 10 % IN WATER 250 ML IV PRN (16:05)
[2024-03-04] MEDS ORDERED: INSULIN LISPRO 1 UNIT/0.01 ML SQ SCH (16:30)
[2024-03-04 18:00] VITALS: BP 158/67
[2024-03-04 20:00] VITALS: BP 155/61
[2024-03-04] MEDS ORDERED: Enoxaparin Sodium 40 MG/0.4 ML SYR SC SCH (21:55)
[2024-03-04] MEDS ORDERED: APIXABAN 5 MG TAB PO SCH (22:00)
[2024-03-04] MEDS ORDERED: ATORVASTATIN CALCIUM 80 MG TAB PO SCH (22:00)
[2024-03-05] VITALS: BP 115/51
[2024-03-05 06:22] LABS: ALKALINE PHOSPHATASE 93 U/L (46-116); BUN 20 mg/dl (9-23); CHLORIDE 108 mmol/L (98-107); CHOLESTEROL 120 mg/dL (<200); FREE T4 1.22 ng/dl (0.89-1.76); LDL CHOLESTEROL 55 mg/dL (9-159); POTASSIUM 3.7 mmol/L (3.4-5.1); SGPT/ALT 18 U/L (5-49); TOTAL PROTEIN 6.3 gm/dL (6.0-8.0); TRIGLYCERIDES 141 mg/dl (<150)
[2024-03-05 06:38] LABS: EOS # 0.2 10*3/uL (0.0-0.4); EOS % 5.5 % (1.0-4.0); HEMATOCRIT 32.4 % (37.0-47.0); LYMPH # 0.5 10*3/uL (1.3-4.4); LYMPH % 13.1 % (27.0-41.0); MEAN CELL VOLUME 92.6 fl (81.0-99.0); MEAN CORPUSCULAR HGB 28.6 pg (27.0-31.0); MEAN CORPUSCULAR HGB CONC 30.9 g/dl (33.0-37.0); MEAN PLATELET VOLUME 11.1 fl (9.6-12.3); MONO # 0.5 10*3/uL (0.1-1.0); MONO % 11.7 % (3.0-9.0); NEUT # 2.6 10*3/uL (2.3-7.9); NEUT % 68.2 % (47.0-73.0); PLATELET COUNT AUTOMATED 101 10*3/uL (130-400); RED CELL DISTRI WIDTH 13.6 % (0-14.5); WHITE BLOOD COUNT 3.8 10*3/uL (4.8-10.8)
[2024-03-05 07:10] LABS: VITAMIN D, 25-HYDROXY 59.7 ng/mL (30-100)
[2024-03-05 08:00] VITALS: BP 134/55
[2024-03-05] MEDS ORDERED: ESCITALOPRAM OXALATE 20 MG TAB PO SCH (10:00)
[2024-03-05] MEDS ORDERED: Enoxaparin Sodium 40 MG/0.4 ML SYR SC SCH (10:00)
[2024-03-05] MEDS ORDERED: ASPIRIN ENTERIC COATED 81 MG TAB PO SCH (10:00)
[2024-03-05] MEDS ORDERED: EMPAGLIFLOZIN 10 MG TABLET PO SCH (10:00)
[2024-03-05 12:00] VITALS: BP 142/44
[2024-03-05] MEDS ORDERED: MAGNESIUM SULFATE 50 ML IV ONE (13:50)
[2024-03-05] MEDS ORDERED: ASPIRIN 300 MG SUPP R SCH (15:00)
[2024-03-05] MEDS ORDERED: DEXTROSE 5% IN LACTATED RINGER 1,000 ML IV SCH (15:05)
[2024-03-05 16:00] VITALS: BP 120/79
[2024-03-05 20:00] VITALS: BP 140/65
[2024-03-06] VITALS: BP 132/44
[2024-03-06 07:20] LABS: BASO % 1.2 % (0.0-1.0); EOS # 0.2 10*3/uL (0.0-0.4); EOS % 9.4 % (1.0-4.0); HEMATOCRIT 32.5 % (37.0-47.0); LYMPH # 0.4 10*3/uL (1.3-4.4); LYMPH % 14.6 % (27.0-41.0); MEAN CELL VOLUME 91.8 fl (81.0-99.0); MEAN CORPUSCULAR HGB 28.8 pg (27.0-31.0); MEAN CORPUSCULAR HGB CONC 31.4 g/dl (33.0-37.0); MEAN PLATELET VOLUME 10.9 fl (9.6-12.3); MONO # 0.4 10*3/uL (0.1-1.0); MONO % 14.2 % (3.0-9.0); NEUT # 1.5 10*3/uL (2.3-7.9); NEUT % 60.2 % (47.0-73.0); PLATELET COUNT AUTOMATED 85 10*3/uL (130-400); RED BLOOD COUNT 3.54 10*6/uL (4.10-5.10); RED CELL DISTRI WIDTH 13.3 % (0-14.5); WHITE BLOOD COUNT 2.5 10*3/uL (4.8-10.8)
[2024-03-06 07:39] LABS: BUN 12 mg/dl (9-23); CHLORIDE 107 mmol/L (98-107); POTASSIUM 3.6 mmol/L (3.4-5.1)
[2024-03-06 08:00] VITALS: BP 160/56
[2024-03-06 12:00] VITALS: BP 146/60
[2024-03-06 16:00] VITALS: BP 144/60
[2024-03-06 20:00] VITALS: BP 127/67
[2024-03-07] VITALS: BP 150/71
[2024-03-07 06:15] LABS: BASO % 1.2 % (0.0-1.0); EOS # 0.2 10*3/uL (0.0-0.4); EOS % 9.2 % (1.0-4.0); HEMATOCRIT 31.8 % (37.0-47.0); LYMPH # 0.3 10*3/uL (1.3-4.4); LYMPH % 10.4 % (27.0-41.0); MEAN CELL VOLUME 90.9 fl (81.0-99.0); MEAN CORPUSCULAR HGB 28.6 pg (27.0-31.0); MEAN CORPUSCULAR HGB CONC 31.4 g/dl (33.0-37.0); MEAN PLATELET VOLUME 10.7 fl (9.6-12.3); MONO # 0.3 10*3/uL (0.1-1.0); MONO % 12.9 % (3.0-9.0); NEUT # 1.6 10*3/uL (2.3-7.9); NEUT % 65.9 % (47.0-73.0); PLATELET COUNT AUTOMATED 78 10*3/uL (130-400); RED CELL DISTRI WIDTH 13.2 % (0-14.5); WHITE BLOOD COUNT 2.5 10*3/uL (4.8-10.8)
[2024-03-07 06:43] LABS: BUN 11 mg/dl (9-23); CHLORIDE 107 mmol/L (98-107); POTASSIUM 3.4 mmol/L (3.4-5.1)
[2024-03-07 08:00] VITALS: BP 134/56
[2024-03-07 12:00] VITALS: BP 107/64
[2024-03-07 16:00] VITALS: BP 146/49
[2024-03-07 20:00] VITALS: BP 130/76
[2024-03-08] VITALS: BP 114/73
[2024-03-08] MEDS ORDERED: HEEL PROTECTOR DEVICE ONE (04:30)
[2024-03-08 05:33] LABS: ALKALINE PHOSPHATASE 167 U/L (46-116); BUN 8 mg/dl (9-23); CHLORIDE 106 mmol/L (98-107); POTASSIUM 3.4 mmol/L (3.4-5.1); SGPT/ALT 75 U/L (5-49); TOTAL PROTEIN 5.7 gm/dL (6.0-8.0)
[2024-03-08 06:21] LABS: BASO % 1.1 % (0.0-1.0); EOS # 0.3 10*3/uL (0.0-0.4); EOS % 9.7 % (1.0-4.0); HEMATOCRIT 29.3 % (37.0-47.0); LYMPH # 0.3 10*3/uL (1.3-4.4); MEAN CELL VOLUME 91.3 fl (81.0-99.0); MEAN CORPUSCULAR HGB CONC 31.7 g/dl (33.0-37.0); MEAN PLATELET VOLUME 11.1 fl (9.6-12.3); MONO # 0.3 10*3/uL (0.1-1.0); MONO % 11.8 % (3.0-9.0); NEUT # 1.9 10*3/uL (2.3-7.9); PLATELET COUNT AUTOMATED 68 10*3/uL (130-400); RED BLOOD COUNT 3.21 10*6/uL (4.10-5.10); RED CELL DISTRI WIDTH 13.2 % (0-14.5); RETICULOCYTE % 1.24 % (0.50-2.50); WHITE BLOOD COUNT 2.8 10*3/uL (4.8-10.8)
[2024-03-08 08:00] VITALS: BP 122/51
[2024-03-08] MEDS ORDERED: BARIUM SULFATE 98% 340 GM BOT PO ONE ×2 (11:38→13:00)
[2024-03-08 12:00] VITALS: BP 152/76
[2024-03-08] MEDS ORDERED: ASPIRIN ENTERIC COATED 81 MG TAB PO SCH (13:55)
[2024-03-08 16:00] VITALS: BP 131/54
[2024-03-08 20:00] VITALS: BP 138/50
[2024-03-08] MEDS ORDERED: APIXABAN 5 MG TAB PO SCH (22:00)
[2024-03-09] VITALS: BP 122/64; BP 154/64
[2024-03-09 02:06] LABS: TOTAL PROTEIN, SERUM 4.9 g/dL (6.0-8.5)
[2024-03-09 06:41] LABS: BUN 8 mg/dl (9-23); CHLORIDE 105 mmol/L (98-107); POTASSIUM 3.1 mmol/L (3.4-5.1)
[2024-03-09 07:02] LABS: BASO % 0.8 % (0.0-1.0); EOS # 0.3 10*3/uL (0.0-0.4); EOS % 5.8 % (1.0-4.0); LYMPH # 0.5 10*3/uL (1.3-4.4); LYMPH % 11.2 % (27.0-41.0); MEAN CELL VOLUME 92.8 fl (81.0-99.0); MEAN CORPUSCULAR HGB 28.4 pg (27.0-31.0); MEAN CORPUSCULAR HGB CONC 30.6 g/dl (33.0-37.0); MEAN PLATELET VOLUME 11.2 fl (9.6-12.3); MONO # 0.5 10*3/uL (0.1-1.0); MONO % 10.5 % (3.0-9.0); NEUT # 3.5 10*3/uL (2.3-7.9); NEUT % 71.5 % (47.0-73.0); RED BLOOD COUNT 3.88 10*6/uL (4.10-5.10); RED CELL DISTRI WIDTH 13.1 % (0-14.5); WHITE BLOOD COUNT 4.8 10*3/uL (4.8-10.8)
[2024-03-09 07:03] LABS: PLATELET COUNT AUTOMATED 92 10*3/uL (130-400)
[2024-03-09 08:00] VITALS: BP 146/69
[2024-03-09] MEDS ORDERED: Potassium Bicarbonate/Potass 25 MEQ TAB PO ONE (08:00)
[2024-03-09] MEDS ORDERED: NA FERRIC GLUC CMPL/SUCROSE 250 MG IV SCH (10:00)
[2024-03-09] MEDS ORDERED: VITAMIN A AND D 2 OZ TUBE T SCH (10:00)
[2024-03-09] MEDS ORDERED: NA FERRIC GLUC CMPL/SUCROSE 62.5 MG/5 ML VIAL IV SCH (10:00)
[2024-03-09] MEDS ORDERED: ASPIRIN ADULT L81 M2 PO (11:50)
[2024-03-09] MEDS ORDERED: IRON325 M1 PO (11:52)
[2024-03-09 12:00] VITALS: BP 145/76
[2024-03-09 14:08] LABS: ALBUMIN 2.5 g/dL (2.9-4.4); ALPHA-1-GLOBULIN 0.2 g/dL (0.0-0.4); ALPHA-2-GLOBULIN 0.7 g/dL (0.4-1.0); BETA GLOBULIN 0.8 g/dL (0.7-1.3); GAMMA GLOBULIN 0.6 g/dL (0.4-1.8); GLOBULIN, TOTAL 2.4 g/dL (2.2-3.9); PE INTERPRETATION Comment: (.)
[2024-03-09 16:09] LABS: ANTICARDIOLIPIN AB, IGG, QN <9 GPL U/mL (0-14); ANTICARDIOLIPIN AB, IGM, QN <9 MPL U/mL (0-12); CARDIOLIPIN AB IGA <9 APL U/mL (0-11)
== END 2024-03-09 15:03 | disposition home health service (06) | DRG 65 ==
LOC: ED 11:18 → EDHOLD 12:58 → 4E 12:58 → EDHOLD 12:59 → 4E 13:46
PROVIDERS: Emergency Medicine; Physician Assistant; Student in an Organized Health Care Education/Training Program; ADMIT Internal Medicine; ATTEND Internal Medicine
PROC: BD1BYZZ Fluoroscopy of Mouth/Oropharynx using Other Contrast (ICD-10-PCS; principal; 2024-03-09)
DX: I63.541 Cerebral infarction due to unspecified occlusion or stenosis of right cerebellar artery (principal); D61.818 Other pancytopenia; I48.92 Unspecified atrial flutter; E87.1 Hypo-osmolality and hyponatremia; I47.10 Supraventricular tachycardia, unspecified; I35.0 Nonrheumatic aortic (valve) stenosis; Z66 Do not resuscitate; E11.65 Type 2 diabetes mellitus with hyperglycemia; R56.9 Unspecified convulsions; I50.9 Heart failure, unspecified; E07.9 Disorder of thyroid, unspecified; I11.0 Hypertensive heart disease with heart failure; E61.1 Iron deficiency; R74.01 Elevation of levels of liver transaminase levels; Z88.1 Allergy status to other antibiotic agents; Z79.899 Other long term (current) drug therapy; Z79.84 Long term (current) use of oral hypoglycemic drugs